=== PATIENT | female | born 1960 | race Caucasian/White ===

== ENCOUNTER → 2019-09-30 13:43 | Outpatient (CLI) | payer BC, SELFPAY ==
--- NOTE | ~2019-09-30 | MM_ITS ---
EXAMINATION: MM screening cedric BI w mj HISTORY: Screening mammogram TECHNIQUE: Craniocaudal and mediolateral oblique 3-D tomosynthesis images were obtained and synthetic 2-D images were generated. CAD analysis was submitted and interpreted. COMPARISON: No prior mammogram is available for comparison at this institution. BREAST PARENCHYMAL COMPOSITION: The breasts are heterogeneously dense, which may obscure small masses . FINDINGS: RIGHT BREAST: There is no evidence of suspicious mass, calcification, or architectural distortion to suggest malignancy. LEFT BREAST: An asymmetry is present in the middle third of the outer breast 8 cm from the nipple on the craniocaudal view. IMPRESSION: 1. Left breast asymmetry which may represent the patient's baseline however no comparison is currentl y available. 2. Comparison with prior mammograms is necessary. BI-RADS Category 0: Incomplete: Needs comparison with prior mammograms. Reviewed, dictated and finalized at location A. IMPRESSION: 1. Left breast asymmetry which may represent the patient's baseline however no comparison is currently available. 2. Comparison with prior mammograms is necessary. BI-RADS Category 0: Incomplete: Needs comparison with prior mammograms.
== END ==
PROVIDERS: Visit Provider Obstetrics & Gynecology Gynecology
DX: Z12.31 Encounter for screening mammogram for malignant neoplasm of breast (principal); R92.8 Other abnormal and inconclusive findings on diagnostic imaging of breast
CPT/HCPCS: 77063; 77067

== ENCOUNTER 2020-05-23 16:46 | Outpatient (CLI) | payer BC, SELFPAY | END 2020-05-23 16:47 | disposition home or self-care (01) | LOC: ANHCOVIDVC 16:46 | DX: Z23 Encounter for immunization (principal) | CPT/HCPCS: 0001A; 91300 ==

== ENCOUNTER 2020-06-13 16:43 | Outpatient (CLI) | payer BC, SELFPAY | END 2020-06-13 16:44 | disposition home or self-care (01) | LOC: ANHCOVIDVC 16:43 | PROVIDERS: PCP Nurse Practitioner Family | DX: Z23 Encounter for immunization (principal) | CPT/HCPCS: 0002A; 91300 ==

== ENCOUNTER → 2020-09-30 11:23 | Outpatient (CLI) | payer BC, SELFPAY ==
--- NOTE | ~2020-09-30 | MM_ITS ---
EXAMINATION: MM screening cedric BI w mj HISTORY: Screening mammogram TECHNIQUE: Craniocaudal and mediolateral oblique 3-D tomosynthesis images were obtained and synthetic 2-D images were generated. CAD analysis was submitted and interpreted. COMPARISON: 09/30/2019, 07/19/2017, 04/29/2015 BREAST PARENCHYMAL COMPOSITION: The breasts are heterogeneously dense, which may obscure small masses . FINDINGS: There is stable asymmetry in the middle third of the outer left breast. Patient was coded a s a BIRADS 0 for additional imaging evaluation of this finding on screening mammogram one year ago wh ich was not performed. Finding is probably benign given the interval stability. There is no evidence of suspicious mass, calcification, or architectural distortion to suggest malignancy in either breast . There has been no suspicious interval change. IMPRESSION: 1. No mammographic evidence of malignancy. 2. Recommend routine screening mammography in one year. BI-RADS Category 2: Benign finding(s). Reviewed, dictated and finalized at location A.
== END ==
PROVIDERS: Visit Provider Obstetrics & Gynecology
DX: Z12.31 Encounter for screening mammogram for malignant neoplasm of breast (principal)
CPT/HCPCS: 77063; 77067